=== PATIENT | female | born 1955 | race Hispanic/Latino ===

== ENCOUNTER 2022-09-27 10:39 | Outpatient (CLI) | payer OTHER | END 2022-09-27 10:40 | disposition home or self-care (01) | LOC: CSHULT 10:39 | PROVIDERS: ATTEND Internal Medicine Gastroenterology | DX: K74.60 Unspecified cirrhosis of liver (principal); R16.1 Splenomegaly, not elsewhere classified | CPT/HCPCS: 76700 ==

== ENCOUNTER 2023-02-13 09:15 | Day surgery (SDC) | payer OTHER ==
[2023-02-11 13:39] VITALS: BMI 26.6
[2023-02-13] MEDS ORDERED: Lidocaine 1% PF 5 ML VIAL ONE (11:14)
[2023-02-13] MEDS ORDERED: PROPOFOL 20 ML ONE (11:14)
== END 2023-02-13 12:26 | disposition home or self-care (01) ==
LOC: CSHSDC 09:15
PROVIDERS: ATTEND Internal Medicine Gastroenterology
PROC: 0DB98ZX Excision of Duodenum, Via Natural or Artificial Opening Endoscopic, Diagnostic (ICD-10-PCS; principal; 2023-02-13)
DX: K74.60 Unspecified cirrhosis of liver (principal); K76.0 Fatty (change of) liver, not elsewhere classified; K76.6 Portal hypertension; K31.89 Other diseases of stomach and duodenum; D64.9 Anemia, unspecified; D69.6 Thrombocytopenia, unspecified; E11.9 Type 2 diabetes mellitus without complications; I10 Essential (primary) hypertension; E03.9 Hypothyroidism, unspecified; Z79.899 Other long term (current) drug therapy
CPT/HCPCS: 88305; J2704